=== PATIENT | male | born 1980 | race Caucasian/White ===

== ENCOUNTER → 2023-12-19 09:21 | Outpatient (REF) | payer BC, SELFPAY | LOC: RAD 09:21 | PROVIDERS: ATTENDING PHYSICIAN Internal Medicine Rheumatology; FAMILY PHYSICIAN Physician Assistant Medical | DX: M25.50 Pain in unspecified joint (principal) | CPT/HCPCS: 72100; 73030 ==

== ENCOUNTER 2024-11-22 06:23 | Day surgery (SDC) | payer BC, SELFPAY | END 2024-11-22 15:28 | disposition home or self-care (01) | LOC: GI 06:23 | PROVIDERS: ATTENDING PHYSICIAN Student in an Organized Health Care Education/Training Program | DX: Z12.11 Encounter for screening for malignant neoplasm of colon (principal) | CPT/HCPCS: G0121 ==